=== PATIENT | female | born 1965 | race Caucasian/White ===

== ENCOUNTER 2018-04-03 16:19 | Outpatient (CLI) | payer OTHER ==
--- NOTE | 2018-04-18 11:30 | Mammography Report ---
Procedure Date: 04/03/2018 Accession Number: [id number] / [id number] Procedure: MGN - Screening Mammo Dig Bilat CPT Code: FULL RESULT: EXAM: Screening Mammo Dig Bilat DATE: 04/03/2018 4:38 PM CLINICAL HISTORY: 53 year-old nulliparous female. TECHNIQUE: Bilateral CC and MLO views were obtained. COMPARISON: None FINDINGS: The breasts demonstrate scattered fibroglandular densities bilaterally. There are coarse typically benign left breast calcifications. No suspicious masses, clustered microcalcifications, or regions of architectural distortion are identified. IMPRESSION: Benign findings RECOMMENDATION: Routine annual screening unless otherwise clinically indicated. BIRADS CATEGORY 2: Benign findings STANDARD QUALIFYING STATEMENTS: 1. This examination was reviewed with the aid of Computer-Aided Detection (CAD). 2. A negative or benign imaging report should not delay biopsy if clinically suspicious findings are present. Consider surgical consultation if warrented. More than 5% of cancers are not identified by imaging. 3. Dense breasts may obscure an underlying neoplasm.
== END 2018-04-03 16:20 | disposition home or self-care (01) ==
LOC: DI.N 16:19
PROVIDERS: ATTEND Family Medicine
DX: Z12.31 Encounter for screening mammogram for malignant neoplasm of breast (principal)
CPT/HCPCS: 77067

== ENCOUNTER 2020-08-04 07:00 | Outpatient (CLI) | payer OTHER | END 2020-08-04 23:59 | disposition home or self-care (01) | LOC: COV 07:00 | PROVIDERS: ATTEND Family Medicine | DX: Z20.828 Contact with and (suspected) exposure to other viral communicable diseases (principal); Z11.59 Encounter for screening for other viral diseases ==

== ENCOUNTER 2021-01-14 10:38 | Outpatient (CLI) | payer BC ==
--- NOTE | 2021-01-14 12:27 | XRAY Report ---
PROCEDURE: Wrist 3 View LT INDICATIONS: L WRIST PX TECHNIQUE: 3 views of the wrist were acquired. COMPARISON: None FINDINGS: Bones: No fractures or dislocations. No suspicious bony lesions. Scaphoid view: No trauma. Soft tissues: No suspicious soft tissue calcifications. IMPRESSION: No trauma found. Reviewed by: Orlando Babb MD on 01/14/2021 12:25 PM PDT Approved by: Orlando Babb MD on 01/14/2021 12:25 PM PDT Station ID: [id number]
--- NOTE | 2021-01-14 12:32 | XRAY Report ---
PROCEDURE: Foot 3 View LT INDICATIONS: L FOOT PX TECHNIQUE: 3 views of the foot were acquired. COMPARISON: FINDINGS: Bones: No fractures or dislocations. No suspicious bony lesions. Soft tissues: No tibiotalar joint effusion. Achilles tendon appears normal. IMPRESSION: Source of pain is not identified. No trauma found. Reviewed by: Orlando Babb MD on 01/14/2021 12:31 PM PDT Approved by: Orlando Babb MD on 01/14/2021 12:31 PM PDT Station ID: [id number]
== END 2021-01-14 10:39 | disposition home or self-care (01) ==
LOC: DI.N 10:38
PROVIDERS: ATTEND Family Medicine
DX: M79.672 Pain in left foot (principal); M25.532 Pain in left wrist; E11.65 Type 2 diabetes mellitus with hyperglycemia
CPT/HCPCS: 36415; 80053; 80061; 82043; 82570; 83036; 83721; 84443; 85025

== ENCOUNTER 2021-01-14 10:46 | Outpatient (CLI) | payer BC ==
[2021-01-14 18:21] LABS: ALBUMIN 4.6 g/dL (3.2-5.5); ALBUMIN/GLOBULIN RATIO 1.6 (1.0-2.2); ALKALINE PHOSPHATASE 69 IU/L (42-121); ALT ALANINE AMINOTRANSFERASE 54 IU/L (10-60); AST ASPARTATE AMINOTRANSFERASE 38 IU/L (10-42); BILIRUBIN,TOTAL 0.8 mg/dL (0.2-1.0); BUN - BLOOD UREA NITROGEN 18 mg/dL (6-20); CALCIUM 9.8 mg/dL (8.5-10.3); CARBON DIOXIDE - CO2 24 mmol/L (21-32); CHLORIDE 99 mmol/L (101-111); CHOLESTEROL 429 mg/dL; CREATININE 0.6 mg/dL (0.4-1.0); GFR - MDRD 105 (>89); GLUCOSE 282 mg/dL (70-100); HDL CHOLESTEROL 71 mg/dL; POTASSIUM 4.2 mmol/L (3.5-5.0); SODIUM 136 mmol/L (135-145); TOTAL PROTEIN 7.4 g/dL (6.7-8.2); TRIGLYCERIDES 570 mg/dL
[2021-01-14 18:24] LABS: CREATININE,URINE 50.1 mg/dL
[2021-01-14 18:30] LABS: THYROID STIMULATING HORMONE 2.12 uIU/mL (0.34-5.60)
[2021-01-14 18:31] LABS: BASOPHILS % (AUTO) 0.4 %; EOSINOPHILS # (AUTO) 0.2 10^3/uL (0.0-0.7); EOSINOPHILS % (AUTO) 3.2 %; HCT - HEMATOCRIT 44.3 % (37.0-47.0); HGB - HEMOGLOBIN 14.2 g/dL (12.0-16.0); LYMPHOCYTES # (AUTO) 2.7 10^3/uL (1.5-3.5); LYMPHOCYTES % (AUTO) 38.8 %; MEAN CORPUSCULAR HEMOGLOBIN 31.2 pg (27.0-31.0); MEAN CORPUSCULAR HGB CONC 32.1 g/dL (32.0-36.0); MEAN CORPUSCULAR VOLUME 97.4 fL (81.0-99.0); MEAN PLATELET VOLUME 9.8 fL (7.9-10.8); MONOCYTES # (AUTO) 0.5 10^3/uL (0.0-1.0); MONOCYTES % (AUTO) 7.1 %; NEUTROPHILS # (AUTO) 3.5 10^3/uL (1.5-6.6); NEUTROPHILS % (AUTO) 50.2 %; PLT - PLATELET COUNT 307 10^3/uL (130-450); RED BLOOD COUNT 4.55 10^6/uL (4.20-5.40); RED CELL DISTRIBUTION WIDTH 12.6 % (12.0-15.0); WHITE BLOOD COUNT 6.9 x10^3/uL (4.8-10.8)
[2021-01-14 18:35] LABS: MICROALBUMIN,URINE < 0.2 mg/dL (0-300.0)
[2021-01-14 19:11] LABS: LDL CHOLESTEROL,DIRECT 282 mg/dL
[2021-01-14 19:58] LABS: ESTIMATED AVERAGE GLUCOSE 278 mg/dL (70-100); HEMOGLOBIN A1c% 11.3 % (4.27-6.07)
== END 2021-01-14 10:47 | disposition home or self-care (01) ==
LOC: LAB.N 10:46
PROVIDERS: ATTEND Family Medicine
DX: E11.65 Type 2 diabetes mellitus with hyperglycemia (principal)
CPT/HCPCS: 36415; 80053; 80061; 82043; 82570; 83036; 83721; 84443; 85025

== ENCOUNTER 2021-07-29 14:45 | Emergency (ER) | payer BC ==
--- NOTE | 2021-07-29 15:23 | ED Physician Documentation ---
History of Present Illness - Stated complaint Stated Complaint: C+,SOA,FEVER - Chief complaint Chief Complaint: Resp - History obtained from History obtained from: Patient - History of Present Illness Timing: Today Pain level max: 0 Pain level now: 0 - Additonal information Additional information: Patient is a 56-year-old female who states that she has been sick for the past 7 days. She states that she took a home test that was positive for Covid. Increasing shortness of breath and fever over the past few days. Decided to come in today so she could receive monoclonal antibodies. Nothing makes it better or worse. Has not been vaccinated. She states that she is a diabetic but is not on any medications at home. Review of Systems Ten Systems: 10 systems reviewed and negative Constitutional: reports: Fever, Chills Ears: denies: Ear pain Nose: denies: Rhinorrhea / runny nose, Congestion Cardiac: denies: Chest pain / pressure Respiratory: reports: Dyspnea, Cough GI: denies: Abdominal Pain, Nausea, Vomiting, Diarrhea Skin: denies: Rash Musculoskeletal: denies: Neck pain, Back pain Neurologic: denies: Headache PD PAST MEDICAL HISTORY - Past Medical History Past Medical History: Yes Endocrine/Autoimmune: Type 2 diabetes - Allergies Allergies/Adverse Reactions: Allergies Allergy/AdvReac Type Severity Reaction Status Date / Time amoxicillin Allergy Unknown Verified 07/29/21 15:12 ampicillin Allergy Unknown Verified 07/29/21 15:12 erythromycin base Allergy Unknown Verified 07/29/21 15:12 Penicillins Allergy Unknown Verified 07/29/21 15:12 PD ED PE NORMAL - Vitals Vital signs reviewed: Yes - General General: Alert and oriented X 3, No acute distress - HEENT HEENT: Moist mucous membranes - Neck Neck: Supple, no meningeal sign - Cardiac Cardiac: RRR, Strong equal pulses - Respiratory Respiratory: No respiratory distress, Clear bilaterally - Abdomen Abdomen: Soft, Non tender, Non distended - Derm Derm: Warm and dry - Neuro Neuro: Alert and oriented X 3 Results - Vitals Vitals: Vital Signs - 24 hr 07/29/21 07/29/21 07/29/21 15:09 16:15 17:59 Temperature 37.5 C Heart Rate 74 74 76 Respiratory 27 H 25 H 26 H Rate Blood Pressure 145/69 H 136/69 H 142/71 H O2 Saturation 87 L 92 90 L 07/29/21 19:14 Temperature 37.6 C Heart Rate 79 Respiratory 24 Rate Blood Pressure 148/76 H O2 Saturation 92 Oxygen O2 Source Room air Oxygen Flow Rate 2 - Labs Labs: Laboratory Tests 07/29/21 07/29/21 07/29/21 15:11 15:11 15:11 WBC 7.2 RBC 4.10 L Hgb 13.1 Hct 38.0 MCV 92.7 MCH 32.0 H MCHC 34.5 RDW 12.1 Plt Count TNP MPV 10.0 Neut # (Auto) 5.7 Lymph # (Auto) 1.2 L Vilas # (Auto) 0.3 Eos # (Auto) 0.0 Baso # (Auto) 0.0 Absolute Nucleated RBC 0.00 Nucleated RBC % 0.0 Manual Slide Review Indicated Platelet Estimate NORMAL (130-450,000) Platelet Morphology PLATELET CLUMPING PT 12.2 INR 1.1 APTT 22.8 L Sodium 129 L Potassium 4.2 Chloride 92 L Carbon Dioxide 23 Anion Gap 14.0 H BUN 13 Creatinine 0.7 Estimated GFR (MDRD) 87 L Glucose 268 H Lactic Acid Calcium 8.7 Total Bilirubin 0.7 AST 51 H ALT 41 Alkaline Phosphatase 52 Total Protein 7.0 Albumin 3.4 Globulin 3.6 Albumin/Globulin Ratio 0.9 L Lipase 42 Nasal Adenovirus (PCR) Nasal B. parapertussis DNA (PCR) Nasal Coronavir 229E PCR Nasal Coronavir HKU1 PCR Nasal Coronavir NL63 PCR Nasal Coronavir OC43 PCR Nasal Enterovir/Rhinovir PCR Nasal Influenza B PCR Nasal Influenza A PCR Nasal Parainfluen 1 PCR Nasal Parainfluen 2 PCR Nasal Parainfluen 3 PCR Nasal Parainfluen 4 PCR Nasal RSV (PCR) Nasal B.pertussis DNA PCR Nasal C.pneumoniae (PCR) Samuel Human Metapneumo PCR Nasal M.pneumoniae (PCR) Nasal SARS-CoV-2 (PCR) 07/29/21 07/29/21 15:11 15:11 WBC RBC Hgb Hct MCV MCH MCHC RDW Plt Count MPV Neut # (Auto) Lymph # (Auto) Vilas # (Auto) Eos # (Auto) Baso # (Auto) Absolute Nucleated RBC Nucleated RBC % Manual Slide Review Platelet Estimate Platelet Morphology PT INR APTT Sodium Potassium Chloride Carbon Dioxide Anion Gap BUN Creatinine Estimated GFR (MDRD) Glucose Lactic Acid 1.5 Calcium Total Bilirubin AST ALT Alkaline Phosphatase Total Protein Albumin Globulin Albumin/Globulin Ratio Lipase Nasal Adenovirus (PCR) NOT DETECTED Nasal B. parapertussis DNA (PCR) NOT DETECTED Nasal Coronavir 229E PCR NOT DETECTED Nasal Coronavir HKU1 PCR NOT DETECTED Nasal Coronavir NL63 PCR NOT DETECTED Nasal Coronavir OC43 PCR NOT DETECTED Nasal Enterovir/Rhinovir PCR NOT DETECTED Nasal Influenza B PCR NOT DETECTED Nasal Influenza A PCR NOT DETECTED Nasal Parainfluen 1 PCR NOT DETECTED Nasal Parainfluen 2 PCR NOT DETECTED Nasal Parainfluen 3 PCR NOT DETECTED Nasal Parainfluen 4 PCR NOT DETECTED Nasal RSV (PCR) NOT DETECTED Nasal B.pertussis DNA PCR NOT DETECTED Nasal C.pneumoniae (PCR) NOT DETECTED Samuel Human Metapneumo PCR NOT DETECTED Nasal M.pneumoniae (PCR) NOT DETECTED Nasal SARS-CoV-2 (PCR) DETECTED A PD MEDICAL DECISION MAKING - ED course Complexity details: reviewed results, re-evaluated patient, considered differential, d/w patient ED course: Patient is a 56-year-old female with Covid. She was borderline hypoxic, but her oxygen saturation improved during her emergency department stay. She is adamant that she will not be admitted to the hospital. She is requesting monoclonal antibody therapy and she is a candidate for this. Mab therapy for this patient with Covid was considered and discussed with the patient. The patient was provided with a handout: "Casirivimab plus Imdevimab fact sheet for patients, parents and caregivers" and the information within was discussed with the patient. Patient was informed of alternatives prior to receiving Mab therapy. Patient was informed that these medications are unapproved drugs that are authorized for use under emergency use authorization by the FDA. The patient will be monitored for at least 1 hour after infusion is complete.Patient received her therapy and will be discharged home. Patient is not currently hypoxic. She is informed that she is welcome to return at any time should she have more difficulty breathing or worsen. Patient is also encouraged to become vaccinated. This document was made in part using voice recognition software. While efforts are made to proofread this document, sound alike and grammatical errors may occur. Departure - Departure Disposition: 01 Home, Self Care Clinical Impression: COVID-19 Condition: Good Instructions: COVID-19 [facility] [place] Follow-Up: Junaid Sarah DO [Primary Care Provider] - As Needed Comments: You have received monoclonal antibody therapy today. Your oxygen levels were low when you first arrived to the emergency department, but they have been above 92% on room air while you have been here. If your shortness of breath worsens or you are not improving as expected, I encourage you highly to return. We also highly encouraged covid vaccination 90 days after monoclonal antibody therapy. Discharge Date/Time: 07/29/21 19:10
[2021-07-29 15:36] LABS: INR 1.1 (0.8-1.2); PT - PROTHROMBIN TIME 12.2 secs (9.9-12.6)
[2021-07-29 15:37] LABS: BASOPHILS % (AUTO) 0.3 %; EOSINOPHILS % (AUTO) 0.1 %; HGB - HEMOGLOBIN 13.1 g/dL (12.0-16.0); LYMPHOCYTES # (AUTO) 1.2 10^3/uL (1.5-3.5); MEAN CORPUSCULAR HGB CONC 34.5 g/dL (32.0-36.0); MEAN CORPUSCULAR VOLUME 92.7 fL (81.0-99.0); MONOCYTES # (AUTO) 0.3 10^3/uL (0.0-1.0); MONOCYTES % (AUTO) 3.5 %; NEUTROPHILS # (AUTO) 5.7 10^3/uL (1.5-6.6); RED CELL DISTRIBUTION WIDTH 12.1 % (12.0-15.0); WHITE BLOOD COUNT 7.2 x10^3/uL (4.8-10.8)
[2021-07-29 15:41] LABS: ALBUMIN 3.4 g/dL (3.2-5.5); ALBUMIN/GLOBULIN RATIO 0.9 (1.0-2.2); BILIRUBIN,TOTAL 0.7 mg/dL (0.2-1.0); CALCIUM 8.7 mg/dL (8.5-10.3); CREATININE 0.7 mg/dL (0.4-1.0); POTASSIUM 4.2 mmol/L (3.5-5.0)
[2021-07-29 15:43] LABS: SLIDE REVIEW? Indicated
[2021-07-29 15:44] LABS: PARTIAL THROMBOPLASTIN TIME 22.8 secs (24.9-33.3)
[2021-07-29 16:06] LABS: PLATELET ESTIMATE, MANUAL NORMAL (130-450,000) (NORMAL); PLATELET MORPHOLOGY PLATELET CLUMPING (NORMAL)
--- NOTE | 2021-07-29 16:11 | XRAY Report ---
PROCEDURE: Chest 1 View X-Ray INDICATIONS: covid, hypoxia TECHNIQUE: One view of the chest was acquired. COMPARISON: None FINDINGS: Surgical changes and devices: None. Lungs and pleura: Patchy, predominantly bibasilar opacities. Mediastinum: Mediastinal contours appear normal. Heart size is normal. Bones and chest wall: No suspicious bony lesions. Overlying soft tissues appear unremarkable. IMPRESSION: Bilateral opacities as above suggestive of pneumonia. Reviewed by: Radha Sena MD on 07/29/2021 4:09 PM [facility] Approved by: Radha Sena MD on 07/29/2021 4:09 PM [facility] Station ID: [id number]
[2021-07-29 16:24] LABS: B. PARAPERTUSSIS- RESP PCR PAN NOT DETECTED; B. PERTUSSIS- RESP PCR PANEL NOT DETECTED; C. PNEUMONIAE- RESP PCR PANEL NOT DETECTED; CORONAVIRUS 229E-RESP PCR NOT DETECTED; CORONAVIRUS HKU1-RESP PCR NOT DETECTED; CORONAVIRUS NL63-RESP PCR NOT DETECTED; CORONAVIRUS OC43-RESP PCR NOT DETECTED; HUMAN METAPNEUMOVIRUS NOT DETECTED; INFLUENZA A- RESP PCR PANEL NOT DETECTED; INFLUENZA B - RESP PCR PANEL NOT DETECTED; M. PNEUMONIAE- RESP PCR PANEL NOT DETECTED; PARAINFLUENZA VIRUS 1 NOT DETECTED; PARAINFLUENZA VIRUS 2 NOT DETECTED; PARAINFLUENZA VIRUS 3 NOT DETECTED; PARAINFLUENZA VIRUS 4 NOT DETECTED; RHINOVIRUS/ENTEROVIRUS NOT DETECTED; RSV- RESP PCR PANEL NOT DETECTED
[2021-07-29 16:26] LABS: SARS-CoV-2 -RESP PCR PANEL DETECTED
[2021-07-29] MEDS ORDERED: CASIRIVIMAB/IMDEVIMAB 10 ML in SODIUM CHLORIDE 0.9% 50 ML IV ONE (17:00)
[2021-07-29 19:18] VITALS: BP 148/76
== END 2021-07-29 19:10 | disposition home or self-care (01) ==
LOC: ED 14:45
DX: U07.1 COVID-19 (principal); R06.02 Shortness of breath; E11.9 Type 2 diabetes mellitus without complications
CPT/HCPCS: 0202U; 36415; 71045; 80053; 83605; 83690; 85025; 85610; 85730; 87040; 87150; 99284; J7040; M0243; Q0244